=== PATIENT | female | born 1955 | race Caucasian/White ===

== ENCOUNTER → 2021-11-13 | Day surgery (SDC) | payer MEDICARE ==
[~2021-11-13] MED LIST: ALIGN4 MG; CALCIUM PO; CRESTOR10 MG PO; DEXAMETHASONE SOD PHOS 10 MG/1 ML VIAL ONE; DEXAMETHASONE SOD PHOS INJ 4 MG/ML SDV IV ONE; EPHEDRINE SULFATE INJ 50 MG/ML VIAL IV ONE; FENTANYL CITRATE/PF 100MCG/2 ML INJ ONE; KETOROLAC TROMETHAMINE 30 MG/ML VIAL IV ONE; LEXAPRO20 MG PO; LIDOCAINE 1% W/EPINEPHRINE 20 ML VIAL ONE; LIDOCAINE HCL 2% LOCAL INJ 5 ML SDV VIAL INJ ONE; METOCLOPRAMIDE HCL 10 MG/2ML VIAL IV ONE; METOPROLOL SUCC25 MG PO; MIDAZOLAM HCL 2 MG/2 ML VIAL ONE; NP THYROID60 MG PO; PEPCID20 MG PO; POVIDONE IODINE 0.05% 0.05 % ML PO ONE; PROPOFOL IV EMULSION 10 MG/ML 20 ML VIAL IV ONE; ROCURONIUM BROMIDE 10 MG/ML 5ML VIAL IV ONE; SEVOFLURANE INHAL SOLN 250 ML PEN BTL INH ONE; TYLENOL EXTRA500 MG PO; VITAMIN D3250 MC1
[2021-11-13 14:55] VITALS: BP 133/82
== END | disposition home or self-care (01) ==
LOC: OR 08:17
PROVIDERS: ATTEND Otolaryngology Otolaryngology/Facial Plastic Surgery
DX: D34 Benign neoplasm of thyroid gland (principal); R00.1 Bradycardia, unspecified; E78.5 Hyperlipidemia, unspecified; I10 Essential (primary) hypertension; K21.9 Gastro-esophageal reflux disease without esophagitis; M16.11 Unilateral primary osteoarthritis, right hip; M17.11 Unilateral primary osteoarthritis, right knee; F41.9 Anxiety disorder, unspecified; Z79.899 Other long term (current) drug therapy
CPT/HCPCS: 60220; 71046; 88307; 88331; 88332; 93005; C1713; J1100; J1885; J2001; J2250; J2704; J2765; J3010; 88304